=== PATIENT | female | born 1945 | race Caucasian/White ===

== ENCOUNTER 2018-02-27 08:17 | Emergency (ER) | payer OTHER, BC ==
[2018-02-27 09:56] LABS: Absolute Lymphocytes (CBC) 0.9 K/uL (0.7-4.9); Absolute Monocytes 0.8 K/uL (0.1-1.3); Absolute Neutrophil 9.1 K/uL (1.8-8.0); Basophils % 0.4 % (0-1.3); Eosinophils % 1.2 % (0-4.4); Hematocrit 41.1 % (36.0-45.0); Lymphocytes % 8.2 % (15.3-44.8); MCH 28.7 pg (27.0-35.0); MCV 83.6 fL (80-100); MPV 8.2 fL (7.6-11.3); RBC Red Blood Cell Count 4.92 M/uL (3.86-4.86)
[2018-02-27 10:01] LABS: Urine Blood TRACE (NEG); Urine Glucose NEGATIVE (NEG); Urine Protein NEGATIVE (NEG)
[2018-02-27 10:04] LABS: Urine Bacteria <20 /HPF (<20); Urine Culture Reflex Order NOT NEEDED; Urine RBC <5 /HPF (NONE SEEN)
[2018-02-27 10:05] LABS: Potassium 5.2 mEq/L (3.6-5.0)
[2018-02-27 10:11] LABS: Albumin 3.7 g/dL (3.2-5.5); Bilirubin Direct 0.1 mg/dL (0-0.2); Bilirubin Total 0.6 mg/dL (0.3-1.2); Protein, Total 7.5 g/dL (6.0-8.3)
[2018-02-27] MEDS ORDERED: NA CHLORIDE 0.9% 1,000 ML ONE (10:22)
--- NOTE | 2018-02-27 12:17 | RAD REPORT ---
EXAM DESCRIPTION: CTAbdomen Pelvis W Contrast - 02/27/2018 11:53 am CLINICAL HISTORY: Abdominal pain. COMPARISON: None. TECHNIQUE: Biphasic CT imaging of the abdomen and pelvis was performed with 100 ml non-ionic IV cont rast. All CT scans are performed using dose optimization technique as appropriate and may include automated exposure control or mA/KV adjustment according to patient size. FINDINGS: The lung bases are clear. The liver, spleen, pancreas, right adrenal gland and kidneys are within normal limits. Mild thickenin g of the left adrenal gland seen. Bilateral renal cysts are noted. No bowel obstruction, free air, free fluid or abscess. Short segment of the descending colon demonstr ates mild to moderate pericolonic inflammatory changes where several diverticula are noted compatible with mild acute diverticulitis. A more significant length of the sigmoid colon measuring about 8 cm demonstrates similar findings of pericolonic inflammatory changes in significant diverticulosis. This is compatible with additional area of acute diverticulitis. No peridiverticular abscess seen. The ap pendix is normal. No evidence of significant lymphadenopathy. Moderate lumbosacral degenerative changes. IMPRESSION: Mild acute diverticulitis is present involving the sigmoid colon and distal descending c olon without peridiverticular abscess or other complication seen.
[2018-02-27] MEDS ORDERED: CIPROFLOXACIN HCL 500 MG TAB ONE (12:30)
[2018-02-27] MEDS ORDERED: metroNIDAZOLE 500 MG TABLET ONE (12:30)
[2018-02-27] MEDS ORDERED: SOD POLYSTYREN SUL 15 GM/60 ML UCUP ONE (12:31)
--- NOTE | 2018-02-27 12:36 | EDPHYS ---
Physician Documentation [facility] Name: Lyudmila Elliott Age: 72 yrs Sex: Female : 1945 Arrival Date: 02/27/2018 Time: 08:21 Bed 8 Private MD: Lala Ortiz ED Physician Boston Pope HPI: 02/27 09:05 This 72 yrs old Female presents to ER via Ambulatory with complaints of jr8 Abdominal Pain. 09:05 The patient presents with abdominal pain in the left upper quadrant, in the left lower jr8 quadrant. Onset: The symptoms/episode began/occurred acutely, yesterday. The symptoms do not radiate. Associated signs and symptoms: none. The symptoms are described as sharp. Modifying factors: The symptoms are alleviated by nothing, the symptoms are aggravated by nothing. Severity of pain: At its worst the pain was moderate in the emergency department the pain is unchanged. The patient has not experienced similar symptoms in the past. The patient has not recently seen a physician. Patient stated that she has had abdominal on/off for the past few weeks. Last night was severe. Has never had pain that bad. Denies fevers, n/v/d . Historical: - Allergies: 09:00 PENICILLINS; dm5 09:00 Sulfa (Sulfonamide Antibiotics); dm5 - Home Meds: 09:18 levothyroxine 25 mcg tab 1 tab once daily [Active]; nadolol 40 mg oral tab 1 tab once dm5 daily [Active]; atorvastatin 10 mg oral tab 1 tab once daily [Active]; spironolactone 50 mg Oral tab 1 tab 2 times per day [Active]; alendronate 35 mg oral tab 1 tab once wkly [Active]; Caltrate 600 + D oral oral [Active]; Fish Oil 1,000 mg oral cap daily [Active]; Centrum Silver oral oral [Active]; Glucosamine oral oral [Active]; PreserVision Lutein oral oral [Active]; Josie Aspirin oral 81 mg oral 1 tab once daily [Active]; - PMHx: 09:00 Hypertension; High Cholesterol; Hypothyroidism; Diverticulitis; dm5 - Immunization history:: Adult Immunizations up to date. - Social history:: Smoking status: Patient/guardian denies using tobacco. ROS: 09:05 Eyes: Negative for injury, pain, redness, and discharge, ENT: Negative for injury, jr8 pain, and discharge, Neck: Negative for injury, pain, and swelling, Cardiovascular: Negative for chest pain, palpitations, and edema, Respiratory: Negative for shortness of breath, cough, wheezing, and pleuritic chest pain, Back: Negative for injury and pain, MS/Extremity: Negative for injury and deformity, Skin: Negative for injury, rash, and discoloration, Neuro: Negative for headache, weakness, numbness, tingling, and seizure. 09:05 Abdomen/GI: Positive for abdominal pain, Negative for nausea, vomiting, and diarrhea, abdominal distension, anorexia, dysphagia, hematemesis, black/tarry stool, rectal pain, rectal bleeding, bowel incontinence, flatulence. Exam: 09:05 Eyes: Pupils equal round and reactive to light, extra-ocular motions intact. Lids and jr8 lashes normal. Conjunctiva and sclera are non-icteric and not injected. Cornea within normal limits. Periorbital areas with no swelling, redness, or edema. ENT: Nares patent. No nasal discharge, no septal abnormalities noted. Tympanic membranes are normal and external auditory canals are clear. Oropharynx with no redness, swelling, or masses, exudates, or evidence of obstruction, uvula midline. Mucous membranes moist. Neck: Trachea midline, no thyromegaly or masses palpated, and no cervical lymphadenopathy. Supple, full range of motion without nuchal rigidity, or vertebral point tenderness. No Meningismus. Cardiovascular: Regular rate and rhythm with a normal S1 and S2. No gallops, murmurs, or rubs. Normal PMI, no JVD. No pulse deficits. Respiratory: Lungs have equal breath sounds bilaterally, clear to auscultation and percussion. No rales, rhonchi or wheezes noted. No increased work of breathing, no retractions or nasal flaring. Back: No spinal tenderness. No costovertebral tenderness. Full range of motion. Skin: Warm, dry with normal turgor. Normal color with no rashes, no lesions, and no evidence of cellulitis. MS/ Extremity: Pulses equal, no cyanosis. Neurovascular intact. Full, normal range of motion. Neuro: Awake and alert, GCS 15, oriented to person, place, time, and situation. Cranial nerves II-XII grossly intact. Motor strength 5/5 in all extremities. Sensory grossly intact. Cerebellar exam normal. Normal gait. 09:05 Abdomen/GI: Inspection: obese Bowel sounds: active, all quadrants, Palpation: soft, in all quadrants, moderate abdominal tenderness, in the mid left abdomen , mass, is not appreciated, rebound tenderness, is not appreciated, voluntary guarding, is not appreciated, involuntary guarding, is not appreciated, no appreciated organomegaly, Indicators: McBurney's point is not tender, Thayer's sign is negative, Rovsing's sign is negative, Liver: no appreciated palpable abnormalities, tenderness, is not appreciated. Vital Signs: 09:00 BP 153 / 90; Pulse 70; Resp 18; Temp 97.7; Pulse Ox 100% on R/A; Weight 104.33 kg (R); dm5 Height 5 ft. 3 in. (160.02 cm); Pain 2/10; 10:29 BP 158 / 80; Pulse 62; Resp 19; Pulse Ox 100% on R/A; ae1 12:04 BP 157 / 57; Pulse 76; Resp 22; Pulse Ox 100% on R/A; ae1 12:39 BP 157 / 90; Pulse 80; Resp 19; Pulse Ox 97% on R/A; ae1 09:00 Body Mass Index 40.74 (104.33 kg, 160.02 cm) dm5 MDM: 08:45 Patient medically screened. jr8 12:33 Data reviewed: vital signs, nurses notes, lab test result(s), radiologic studies, CT jr8 scan, and as a result, I will discharge patient. Data interpreted: Pulse oximetry: on room air is 100 %. Interpretation: normal. Counseling: I had a detailed discussion with the patient and/or guardian regarding: the historical points, exam findings, and any diagnostic results supporting the discharge/admit diagnosis, lab results, radiology results, the need for outpatient follow up, a family practitioner, to return to the emergency department if symptoms worsen or persist or if there are any questions or concerns that arise at home. ED course: Discussed with patient that she needs to be off of her potassium sparing diuretic. Will give medicine to reduce potassium but that I want her to be seen by Ms. Ortiz and have blood redraw this week. Patient understood and would follow up . 02/27 09:05 Order name: Basic Metabolic Panel; Complete Time: 10:19 jr8 02/27 09:05 Order name: CBC with Diff; Complete Time: 10:02/27 09:05 Order name: Creatinine for Radiology; Complete Time: :02/27 09:05 Order name: Hepatic Function; Complete Time: :02/27 09:05 Order name: Lipase; Complete Time: :02/27 09:05 Order name: Urine Microscopic Only; Complete Time: :02/27 09:05 Order name: IV Saline Lock; Complete Time: :02/27 09:05 Order name: Labs collected and sent; Complete Time: :02/27 09:43 Order name: Urine Dipstick--Ancillary (enter results); Complete Time: : [facility] 02/27 10:20 Order name: CT Abd/Pelvis - W/Contrast; Complete Time: 12:02/27 09:05 Order name: Urine Dipstick-Ancillary (obtain specimen); Complete Time: : Administered Medications: 10:29 Drug: NS 0.9% 1000 ml Route: IV; Rate: 1000 ml; Site: right antecubital; ae1 12:51 Follow up: IV Status: Completed infusion ae1 12:30 Drug: Kayexalate 30 grams Route: PO; ae1 12:51 Follow up: Response: Medication administered at discharge. ae1 12:30 Drug: Cipro 500 mg Route: PO; ae1 12:51 Follow up: Response: Medication administered at discharge. ae1 12:30 Drug: Flagyl 1 grams Route: PO; ae1 12:50 Follow up: Response: Medication administered at discharge. ae1 Disposition: 02/27/18 12:36 Discharged to Home. Impression: Diverticulitis of large intestine without perforation or abscess without bleeding, Hyperkalemia. - Condition is Stable. - Discharge Instructions: Diverticulitis, Hyperkalemia. - Prescriptions for Cipro 500 mg Oral Tablet - take 1 tablet by ORAL route every 12 hours for 10 days; 20 tablet. Flagyl 500 mg Oral Tablet - take 1 tablet by ORAL route every 6 hours for 10 days; 40 tablet. Zofran 4 mg Oral Tablet - take 1 tablet by ORAL route every 12 hours As needed; 20 tablet. Tramadol 50 mg Oral Tablet - take 1 tablet by ORAL route every 8 hours as needed; 12 tablet. - Medication Reconciliation Form, Thank You Letter, Antibiotic Education, Prescription Opioid Use form. - Follow up: Lala Ortiz; When: 1 - 2 days; Reason: Recheck today's complaints, Continuance of care, Re-evaluation by your physician. - Problem is new. - Symptoms have improved. Addendum: 03/01/2018 06:38 Co-signature as Attending Physician, Boston oPpe MD I agree with the assessment and w a plan of care. Signatures: Dispatcher [employer] EDSD Delicia Benavides, RN RN dm5 Pedro Herman PA PA jr8 Colin Preciado RN RN ae1 Boston Pope MD MD md Corrections: (The following items were deleted from the chart) 02/27 12:51 12:36 02/27/2018 12:36 Discharged to Home. Impression: Diverticulitis of large ae1 intestine without perforation or abscess without bleeding; Hyperkalemia. Condition is Stable. Forms are Medication Reconciliation Form, Thank You Letter, Antibiotic Education, Prescription Opioid Use. Follow up: Lala Ortiz; When: 1 - 2 days; Reason: Recheck today's complaints, Continuance of care, Re-evaluation by your physician. Problem is new. Symptoms have improved. jr8
--- NOTE | 2018-02-27 12:36 | ER ---
Nurse's Notes [facility] Name: Lyudmila Elliott Age: 72 yrs Sex: Female : 1945 Arrival Date: 02/27/2018 Time: 08:21 Bed 8 Private MD: Lala Ortiz Diagnosis: Diverticulitis of large intestine without perforation or abscess without bleeding;Hyperkalemia Presentation: 02/27 08:56 Presenting complaint: Patient states: abdominal pain for about a week. Thought it was dm5 diverticulitis flare but went to Lala Ortiz and was told it probably was not that. Pt had a KUB last week that showed some gas but no obstruction. Pt states it feels like she may be constipated. Transition of care: patient was not received from another setting of care. Onset of symptoms was February 19, 2018. Initial Sepsis Screen: Does the patient meet any 2 criteria? No. Patient's initial sepsis screen is negative. Does the patient have a suspected source of infection? No. Patient's initial sepsis screen is negative. Care prior to arrival: None. 08:56 Method Of Arrival: Ambulatory dm5 08:56 Acuity: PHOEBE 3 dm5 Triage Assessment: 09:00 General: Appears in no apparent distress. uncomfortable, Behavior is calm, cooperative. dm5 Pain: Complains of pain in anterior aspect of left lateral abdomen, left upper quadrant and left lower quadrant Pain currently is 2 out of 10 on a pain scale. at worst was 7 out of 10 on a pain scale. Pain began about a week. Neuro: Level of Consciousness is awake, alert, obeys commands, Oriented to person, place, time. Respiratory: Airway is patent. GI: Abdomen is round obese, Bowel sounds present X 4 quads. Derm: Skin is pink, warm \T\ dry. Historical: - Allergies: 09:00 PENICILLINS; dm5 09:00 Sulfa (Sulfonamide Antibiotics); dm5 - Home Meds: 09:18 levothyroxine 25 mcg tab 1 tab once daily [Active]; nadolol 40 mg oral tab 1 tab once dm5 daily [Active]; atorvastatin 10 mg oral tab 1 tab once daily [Active]; spironolactone 50 mg Oral tab 1 tab 2 times per day [Active]; alendronate 35 mg oral tab 1 tab once wkly [Active]; Caltrate 600 + D oral oral [Active]; Fish Oil 1,000 mg oral cap daily [Active]; Centrum Silver oral oral [Active]; Glucosamine oral oral [Active]; PreserVision Lutein oral oral [Active]; Josie Aspirin oral 81 mg oral 1 tab once daily [Active]; - PMHx: 09:00 Hypertension; High Cholesterol; Hypothyroidism; Diverticulitis; dm5 - Immunization history:: Adult Immunizations up to date. - Social history:: Smoking status: Patient/guardian denies using tobacco. Screenin:30 Abuse screen: Denies threats or abuse. Nutritional screening: No deficits noted. ae1 Tuberculosis screening: No symptoms or risk factors identified. Fall Risk None identified. Assessment: 10:30 General: Appears in no apparent distress. comfortable, obese. Pain: Complains of pain ae1 in abdomen. Neuro: Level of Consciousness is awake, alert, obeys commands, Oriented to person, place, time, situation. Cardiovascular: Patient's skin is warm and dry. Respiratory: Airway is patent Breath sounds are clear bilaterally. GI: Abdomen is round obese, Bowel sounds present X 4 quads. Abdomen is firm. GI: Reports nausea. : No signs and/or symptoms were reported regarding the genitourinary system. EENT: No signs and/or symptoms were reported regarding the EENT system. Derm: Skin is pink, warm \T\ dry. Musculoskeletal: No signs and/or symptoms reported regarding the musculoskeletal system. 10:44 Reassessment: Patient appears in no apparent distress at this time. Patient and/or ae1 family updated on plan of care and expected duration. Pain level reassessed. Patient states feeling better. 11:51 Reassessment: Patient is in CT, IV infiltrated while IV contrast infusing, new IV ae1 established by Himanshu Ramos APPEALS OFFICER. Vital Signs: 09:00 BP 153 / 90; Pulse 70; Resp 18; Temp 97.7; Pulse Ox 100% on R/A; Weight 104.33 kg (R); dm5 Height 5 ft. 3 in. (160.02 cm); Pain 2/10; 10:29 BP 158 / 80; Pulse 62; Resp 19; Pulse Ox 100% on R/A; ae1 12:04 BP 157 / 57; Pulse 76; Resp 22; Pulse Ox 100% on R/A; ae1 12:39 BP 157 / 90; Pulse 80; Resp 19; Pulse Ox 97% on R/A; ae1 09:00 Body Mass Index 40.74 (104.33 kg, 160.02 cm) dm5 ED Course: 08:21 Patient arrived in ED. mr 08:21 Lala Ortiz is Private Physician. mr 08:45 Pedro Herman PA is PHCP. jr8 08:45 oBston Pope MD is Attending Physician. jr8 08:58 Triage completed. dm5 09:00 Arm band placed on right wrist. Patient placed in an exam room, on a stretcher. dm5 09:31 Initial lab(s) drawn, by me, sent to lab. Urine collected: clean catch specimen, jb1 cloudy, maury colored. Inserted saline lock: 22 gauge in right antecubital area, using aseptic technique. Blood collected. 09:59 Colin Preciado, RN is Primary Nurse. ae1 10:30 Bed in low position. Call light in reach. Side rails up X 1. Adult w/ patient. Pulse ox ae1 on. NIBP on. Warm blanket given. 11:[address] via wheelchair. kw1 11:54 CT Abd/Pelvis - W/Contrast In Process Unspecified. EDMS 12:35 Lala Ortiz is Referral Physician. jr8 12:49 No provider procedures requiring assistance completed. IV discontinued, intact, ae1 bleeding controlled, No redness/swelling at site. Pressure dressing applied. Administered Medications: 10:29 Drug: NS 0.9% 1000 ml Route: IV; Rate: 1000 ml; Site: right antecubital; ae1 12:51 Follow up: IV Status: Completed infusion ae1 12:30 Drug: Kayexalate 30 grams Route: PO; ae1 12:51 Follow up: Response: Medication administered at discharge. ae1 12:30 Drug: Cipro 500 mg Route: PO; ae1 12:51 Follow up: Response: Medication administered at discharge. ae1 12:30 Drug: Flagyl 1 grams Route: PO; ae1 12:50 Follow up: Response: Medication administered at discharge. ae1 Outcome: 12:36 Discharge ordered by . jr8 12:50 Discharged to home ambulatory, with significant other. ae1 12:50 Condition: stable 12:50 Discharge instructions given to patient, Instructed on discharge instructions, follow up and referral plans. medication usage, Demonstrated understanding of instructions, Prescriptions given X 4. 12:51 Patient left the ED. ae1 Signatures: Dispatcher [employer] EDMS Richard Kulkarni jb1 Delicia Benavides, RN RN dm5 Melissa Quintana mr Pedro Herman PA PA jr8 Colin Preciado RN RN ae1 Enedelia Barth 1
== END 2018-02-27 12:51 | disposition home or self-care (01) ==
LOC: ER 08:17
DX: K57.32 Diverticulitis of large intestine without perforation or abscess without bleeding (principal); E87.5 Hyperkalemia; I10 Essential (primary) hypertension; E78.00 Pure hypercholesterolemia, unspecified; E03.9 Hypothyroidism, unspecified; Z79.82 Long term (current) use of aspirin; Z88.0 Allergy status to penicillin; Z88.2 Allergy status to sulfonamides
CPT/HCPCS: 36415; 74177; 80048; 80076; 83690; 85025; J7030; Q9967; 81003; 81015; 96360; 96361; 99284

== ENCOUNTER 2018-03-07 08:53 | Emergency (ER) | payer OTHER, BC ==
[2018-03-07] MEDS ORDERED: HYDROCODONE/APAP 5/325 MG TAB ONE (10:07)
--- NOTE | 2018-03-07 10:10 | ER ---
Nurse's Notes [facility] Name: Lyudmila Elliott Age: 72 yrs Sex: Female : 1945 Arrival Date: 03/07/2018 Time: 08:54 Bed 19 Private MD: Diagnosis: Gout, unspecified-left great toe;Abrasion of left forearm Presentation: 03/07 09:00 Acuity: PHOEBE 4 rb1 09:00 Presenting complaint: Patient states: She fell last night around 7:00 and got a skin rb1 tear on her left forearm. She stated, "The reason I fell was because my left foot is hurting and when I stepped down, it shot a pain through my foot and I fell." Pt. denies hitting her head. Transition of care: patient was not received from another setting of care. Onset of symptoms was March 06, 2018 at 19:00. Initial Sepsis Screen: Does the patient meet any 2 criteria? No. Patient's initial sepsis screen is negative. Does the patient have a suspected source of infection? No. Patient's initial sepsis screen is negative. Care prior to arrival: bandage placed on the left forearm. 09:00 Method Of Arrival: Ambulatory rb1 Triage Assessment: 09:00 General: Appears in no apparent distress. comfortable, obese, Behavior is calm, rb1 cooperative. Pain: Complains of pain in left first toe Pain currently is 3 out of 10 on a pain scale. Neuro: Level of Consciousness is awake, alert, obeys commands, Oriented to person, place, time, situation. Cardiovascular: Capillary refill < 3 seconds is brisk in bilateral toes. Respiratory: Airway is patent Respiratory effort is even, unlabored, Respiratory pattern is regular, symmetrical. GI: Reports diarrhea, currently being treated for diverticulitis. : No signs and/or symptoms were reported regarding the genitourinary system. Derm: Bruising that is dark purple, on left forearm and left index finger. Musculoskeletal: Swelling present in right leg and left leg. Historical: - Allergies: 09:00 PENICILLINS; rb1 09:00 Sulfa (Sulfonamide Antibiotics); rb1 - Home Meds: 09:00 alendronate 25 Oral tab 1 tab once wkly [Active]; atorvastatin 10 mg Oral tab 1 tab rb1 once daily [Active]; Josie Aspirin 81 mg Oral 1 tab three times a day [Active]; Caltrate 600 + D Oral daily [Active]; Centrum Silver Oral daily [Active]; Glucosamine Oral daily [Active]; Fish Oil 1,000 mg Oral cap daily [Active]; levothyroxine 25 mcg tab 1 tab once daily [Active]; nadolol 40 mg Oral tab 1 tab once daily [Active]; PreserVision Lutein Oral [Active]; spironolactone 50 mg Oral tab 1 tab 2 times per day [Active]; - PMHx: 09:00 Diverticulitis; High Cholesterol; Hypertension; Hypothyroidism; Gout; rb1 - PSHx: 09:00 Hysterectomy; Hernia repair; Cholecystectomy; rb1 - Immunization history:: Adult Immunizations up to date, Last tetanus immunization: up to date. - Social history:: Smoking status: Patient/guardian denies using tobacco. Screenin:05 Abuse screen: Denies threats or abuse. Nutritional screening: No deficits noted. rb1 Tuberculosis screening: No symptoms or risk factors identified. Fall Risk Fall in past 12 months (25 points). Secondary diagnosis (15 points) impaired mobility, No IV (0 pts). Ambulatory Aid- None/Bed Rest/Nurse Assist (0 pts). Gait- Impaired (20 pts.). Mental Status- Oriented to own ability (0 pts). Total Penny Fall Scale indicates High Risk Score (45 or more points). Fall prevention measures have been instituted. Side Rails Up X 2 Placed Close to Nursing Station 1:1 Attendant Assigned Frequent Obs/Assessments Occuring Family Present and informed to notify staff if the need to leave the bedside As available patient and family educated on Fall Prevention Program and Strategies. Assessment: 09:00 General: See triage assessment. rb1 10:00 Reassessment: Patient appears in no apparent distress at this time. No changes from rb1 previously documented assessment. 10:40 Reassessment: Patient appears in no apparent distress at this time. Patient and/or rb1 family updated on plan of care and expected duration. Pain level reassessed. Patient is alert, oriented x 3, equal unlabored respirations, skin warm/dry/pink. Patient states symptoms have improved. 11:00 Reassessment: Patient appears in no apparent distress at this time. No changes from rb1 previously documented assessment. Vital Signs: 09:00 BP 163 / 85; Pulse 65; Resp 19; Pulse Ox 98% on R/A; Weight 104.33 kg (R); Height 5 ft. rb1 3 in. (160.02 cm); Pain 3/10; 10:00 BP 158 / 79; Pulse 62; Resp 17; Pulse Ox 99% on R/A; rb1 11:05 BP 155 / 74; Pulse 55; Resp 16; Pulse Ox 97% on R/A; aj 09:00 Body Mass Index 40.74 (104.33 kg, 160.02 cm) rb1 ED Course: 08:54 Patient arrived in ED. sb2 08:59 Padmini Veloz, RN is Primary Nurse. rb1 08:59 Trav Worley NP is PHCP. pm1 08:59 Ulysses Nova MD is Attending Physician. pm1 09:00 Arm band placed on right wrist. rb1 09:00 Patient has correct armband on for positive identification. Bed in low position. Call rb1 light in reach. Side rails up X 1. Pulse ox on. NIBP on. 09:29 Triage completed. rb1 11:05 Patient did not have IV access during this emergency room visit. aj 11:05 Dressings: Kerlix X 1; left arm non-adherent dressing x 1 left arm. Wound care: located aa5 on left arm was cleaned with soap and water. 11:05 No provider procedures requiring assistance completed. rb1 Administered Medications: 10:08 Drug: HYDROcodone-acetaminophen 5 mg-325 mg 1 tabs Route: PO; rb1 11:05 Follow up: Response: No adverse reaction aa5 11:05 Drug: Triple Antibiotic Ointment 1 application Route: Topical; Site: wound; aa5 Outcome: 10:10 Discharge ordered by MD. pm1 11:05 Discharged to home ambulatory, with family. aj 11:05 Condition: good 11:05 Discharge instructions given to patient, family, Instructed on discharge instructions, follow up and referral plans. Demonstrated understanding of instructions, follow-up care. 11:06 Patient left the ED. aj Signatures: Aubree Aleman RN RN aj Calderon, Audri, RN RN aa5 Padmini Veloz, RN RN rb1 Trav Worley NP [employer] pm1 Ani Tian sb2
--- NOTE | 2018-03-07 10:10 | EDPHYS ---
Physician Documentation [facility] Name: Lyudmila Elliott Age: 72 yrs Sex: Female : 1945 Arrival Date: 03/07/2018 Time: 08:54 Bed 19 Private MD: ED Physician Ulysses Nova HPI: 03/07 11:00 This 72 yrs old Female presents to ER via Ambulatory with complaints of Fall pm1 Injury, Foot Pain, Arm Injury. 11:00 Details of fall: The patient fell from an upright position, while walking. Onset: The pm1 symptoms/episode began/occurred last night. Associated injuries: The patient sustained abrasion to left forearm. The patient has been recently seen at the [facility] Emergency Department, for unrelated complaints, diagnosed with diverticulitis. Improvement in symptoms and no abdominal pain with antibiotics . tetanus up to date. Patient with a left toe gout flare up for the past 2-3 days. patient stepped down to lower floor of the garage and experienced pain to left toe from gout. Patient fell forward and scrapped her left forearm against the carpet. No head injury, headache or neck pain. Patient taking indomethacin for gout. Historical: - Allergies: 09:00 PENICILLINS; rb1 09:00 Sulfa (Sulfonamide Antibiotics); rb1 - Home Meds: 09:00 alendronate 25 Oral tab 1 tab once wkly [Active]; atorvastatin 10 mg Oral tab 1 tab rb1 once daily [Active]; Josie Aspirin 81 mg Oral 1 tab three times a day [Active]; Caltrate 600 + D Oral daily [Active]; Centrum Silver Oral daily [Active]; Glucosamine Oral daily [Active]; Fish Oil 1,000 mg Oral cap daily [Active]; levothyroxine 25 mcg tab 1 tab once daily [Active]; nadolol 40 mg Oral tab 1 tab once daily [Active]; PreserVision Lutein Oral [Active]; spironolactone 50 mg Oral tab 1 tab 2 times per day [Active]; - PMHx: 09:00 Diverticulitis; High Cholesterol; Hypertension; Hypothyroidism; Gout; rb1 - PSHx: 09:00 Hysterectomy; Hernia repair; Cholecystectomy; rb1 - Immunization history:: Adult Immunizations up to date, Last tetanus immunization: up to date. - Social history:: Smoking status: Patient/guardian denies using tobacco. ROS: 11:00 Constitutional: Negative for fever, chills, and weight loss, Eyes: Negative for injury, pm1 pain, redness, and discharge, ENT: Negative for injury, pain, and discharge, Neck: Negative for injury, pain, and swelling, Cardiovascular: Negative for chest pain, palpitations, and edema, Respiratory: Negative for shortness of breath, cough, wheezing, and pleuritic chest pain, Abdomen/GI: Negative for abdominal pain, nausea, vomiting, diarrhea, and constipation, Back: Negative for injury and pain, : Negative for injury, bleeding, discharge, and swelling. 11:00 Neuro: Negative for headache, weakness, numbness, tingling, and seizure. 11:00 MS/extremity: Positive for pain, of the left first toe. 11:00 Skin: Positive for abrasion(s), of the left arm. Exam: 11:00 Constitutional: This is a well developed, well nourished patient who is awake, alert, pm1 and in no acute distress. Head/Face: Normocephalic, atraumatic. Eyes: Pupils equal round and reactive to light, extra-ocular motions intact. Lids and lashes normal. Conjunctiva and sclera are non-icteric and not injected. Cornea within normal limits. Periorbital areas with no swelling, redness, or edema. ENT: Nares patent. No nasal discharge, no septal abnormalities noted. Tympanic membranes are normal and external auditory canals are clear. Oropharynx with no redness, swelling, or masses, exudates, or evidence of obstruction, uvula midline. Mucous membranes moist. Neck: Trachea midline, no thyromegaly or masses palpated, and no cervical lymphadenopathy. Supple, full range of motion without nuchal rigidity, or vertebral point tenderness. No Meningismus. Chest/axilla: Normal chest wall appearance and motion. Nontender with no deformity. No lesions are appreciated. Cardiovascular: Regular rate and rhythm with a normal S1 and S2. No gallops, murmurs, or rubs. Normal PMI, no JVD. No pulse deficits. Respiratory: Lungs have equal breath sounds bilaterally, clear to auscultation and percussion. No rales, rhonchi or wheezes noted. No increased work of breathing, no retractions or nasal flaring. Abdomen/GI: Soft, non-tender, with normal bowel sounds. No distension or tympany. No guarding or rebound. No evidence of tenderness throughout. Back: No spinal tenderness. No costovertebral tenderness. Full range of motion. 11:00 Musculoskeletal/extremity: Extremities: grossly normal except: noted in the PIP of first left toe: swelling, tenderness. 11:00 Skin: injury, abrasion(s), small abrasion noted, of the dorsal aspect of left forearm. Vital Signs: 09:00 BP 163 / 85; Pulse 65; Resp 19; Pulse Ox 98% on R/A; Weight 104.33 kg (R); Height 5 ft. rb1 3 in. (160.02 cm); Pain 3/10; 10:00 BP 158 / 79; Pulse 62; Resp 17; Pulse Ox 99% on R/A; rb1 11:05 BP 155 / 74; Pulse 55; Resp 16; Pulse Ox 97% on R/A; aj 09:00 Body Mass Index 40.74 (104.33 kg, 160.02 cm) rb1 MDM: 09:05 Patient medically screened. pm1 10:06 Data reviewed: vital signs. Data interpreted: Pulse oximetry: on room air is 98 %. pm1 Interpretation: normal. Counseling: I had a detailed discussion with the patient and/or guardian regarding: the historical points, exam findings, and any diagnostic results supporting the discharge/admit diagnosis, the need for outpatient follow up, to return to the emergency department if symptoms worsen or persist or if there are any questions or concerns that arise at home. 03/07 10:16 Order name: Wound Care; Complete Time: 11:05 pm1 03/07 10:16 Order name: Wound dressing; Complete Time: 11:05 pm1 Administered Medications: 10:08 Drug: HYDROcodone-acetaminophen 5 mg-325 mg 1 tabs Route: PO; rb1 11:05 Follow up: Response: No adverse reaction aa5 11:05 Drug: Triple Antibiotic Ointment 1 application Route: Topical; Site: wound; aa5 Disposition: 03/08 07:16 Co-signature as Attending Physician, Ulysses Nova MD I agree with the assessment and jay plan of care. Disposition: 03/07/18 10:10 Discharged to Home. Impression: Gout, unspecified - left great toe, Abrasion of left forearm. - Condition is Stable. - Discharge Instructions: Abrasion, Gout, Low-Purine Diet. - Medication Reconciliation Form, Thank You Letter, Prescription Opioid Use form. - Follow up: Emergency Department; When: As needed; Reason: Worsening of condition. Follow up: Private Physician; When: 2 - 3 days; Reason: Recheck today's complaints, Continuance of care, Re-evaluation by your physician. - Problem is new. - Symptoms have improved. Signatures: Aubree Aleman RN Ulysses Kolb MD MD cha Calderon, Audri RN RN aa5 Padmini Veloz, RN RN rb1 Trav Worley, [employer] TENDER COORDINATOR pm1 Corrections: (The following items were deleted from the chart) 03/07 11:06 10:10 03/07/2018 10:10 Discharged to Home. Impression: Gout, unspecified - left great aj toe; Abrasion of left forearm. Condition is Stable. Forms are Medication Reconciliation Form, Thank You Letter, Antibiotic Education, Prescription Opioid Use. Follow up: Emergency Department; When: As needed; Reason: Worsening of condition. Follow up: Private Physician; When: 2 - 3 days; Reason: Recheck today's complaints, Continuance of care, Re-evaluation by your physician. Problem is new. Symptoms have improved. pm1
== END 2018-03-07 11:06 | disposition home or self-care (01) ==
LOC: ER 08:53
DX: S50.812A Abrasion of left forearm, initial encounter (principal); W18.30XA Fall on same level, unspecified, initial encounter; Y93.9 Activity, unspecified; Y92.9 Unspecified place or not applicable; M10.9 Gout, unspecified; Z88.0 Allergy status to penicillin; Z88.2 Allergy status to sulfonamides; E03.9 Hypothyroidism, unspecified; I10 Essential (primary) hypertension; E78.00 Pure hypercholesterolemia, unspecified
CPT/HCPCS: 99283

== ENCOUNTER 2018-03-09 12:17 | Observation (INO) | payer OTHER, BC ==
[2018-03-09] MEDS ORDERED: HYDROCODONE/APAP 7.5/325 MG TAB ONE (13:05)
--- NOTE | 2018-03-09 14:42 | RAD REPORT ---
EXAM DESCRIPTION: RAD - Pelvis - 03/09/2018 2:15 pm CLINICAL HISTORY: Fall, pelvic and hip pain COMPARISON: None. TECHNIQUE: AP imaging of the pelvis was obtained. FINDINGS: No fracture or dislocation findings. No AVN or focal femoral head abnormality. Lower lumba r, SI joint and hip joint degenerative changes are present minimal in degree. No pathologic bone proc ess. No suspicious soft tissue finding. IMPRESSION: Negative pelvis for acute or suspicious finding.
--- NOTE | 2018-03-09 14:46 | RAD REPORT ---
EXAM DESCRIPTION: RAD - Knee Right 3 View - 03/09/2018 2:15 pm CLINICAL HISTORY: Fall, knee pain COMPARISON: None. FINDINGS: No fracture, dislocation or periosteal reaction.No joint effusion seen. No joint space carine rowing. Mild degenerative changes are present along the articular margins of all 3 compartments. Mini mal spurring is present at the quadriceps attachment to the patella. Clinical concerns for internal derangement or occult bony injury could be further assessed with MR im aging. IMPRESSION: Mild degenerative change with no acute bone or joint finding.
--- NOTE | 2018-03-09 14:48 | RAD REPORT ---
EXAM DESCRIPTION: RAD - Femur Left - 03/09/2018 2:15 pm CLINICAL HISTORY: Fall, leg pain COMPARISON: None. FINDINGS: No fracture is identified. No dislocation of the femoral head. No AVN or focal femoral he ad abnormality. Calcifications are present and tendon insertion sites to the greater trochanter. Lowe r lumbar and SI joint degenerative changes are present. Marginal spurring degenerative changes are pr esent at all compartments of the knee. No pathologic bone process. No air or foreign body in the soft tissues. IMPRESSION: Degenerative changes are present but no fracture or acute bone finding.
--- NOTE | 2018-03-09 14:53 | RAD REPORT ---
EXAM DESCRIPTION: RAD - Tib Fib Left - 03/09/2018 2:15 pm CLINICAL HISTORY: Persistent pain following fall 3 days earlier COMPARISON: None. FINDINGS: No fracture is identified. There is no dislocation or periosteal reaction noted. No acute or suspicious bony finding. Large plantar spur is present. No foreign body or other soft tissue abnormality. IMPRESSION: Negative left tibia & fibula examination for acute or suspicious finding. Large plantar spur.
[2018-03-09] MEDS ORDERED: FENTANYL CITR 100 MCG/2 ML ONE (16:21)
--- NOTE | 2018-03-09 17:02 | RAD REPORT ---
EXAM DESCRIPTION: CT - Pelvis Wo Cont - 03/09/2018 4:32 pm CLINICAL HISTORY: Fall, pelvic pain, and exam findings out of proportion to imaging findings COMPARISON: Pelvis and hip films same date TECHNIQUE: Axial 2 millimeter thick images of the pelvis were obtained. Sagittal and coronal reforma tted images were generated and reviewed. FINDINGS: No fracture of the bony pelvis or sacral ala. Lower lumbar prominent facet degenerative ch diana present with no fracture. No fracture or dislocation of either proximal femur. No skeletal muscl e hematoma or mass. No suspicious soft tissue finding. No air or foreign body identified. Vascular ca lcifications are seen. IMPRESSION: No fracture or suspicious finding noted.
--- NOTE | 2018-03-09 17:06 | RAD REPORT ---
EXAM DESCRIPTION: CT - Low Extremity Wo Cont - 03/09/2018 4:37 pm CLINICAL HISTORY: Fall 3 days earlier, persistent pelvic and hip pain, pain out of proportion to exa m and imaging findings COMPARISON: CT pelvis same date, left femur films same date TECHNIQUE: Axial 2 millimeter thick images of the left femur were obtained. Imaging spans the entire length of the femur including the acetabulum and proximal most tibia fibula. FINDINGS: No femur fracture identified. There is no dislocation. No AVN or focal femoral head abnorm ality. No acute or destructive bone process seen. Calcifications are present in tendon insertion to t he greater trochanter. This is a chronic finding. Degenerative changes are present at the knee joint. A joint effusion is present but no finding to indicate it is related to fracture. No skeletal muscle mass or hematoma. Contusion or edema changes are seen in the fatty tissues anterior to the knee join t and along the anteromedial margin of the proximal tibia. IMPRESSION: No fracture or acute finding of the left femur. Tendon calcifications are present at ins ertion sites to the greater trochanter. Degenerative change and joint effusion at the knee. No finding to indicate fracture. Contusion and edema changes in the soft tissues anterior to the knee joint, patella tendon and gurwinder medial margin of the proximal tibia.
[2018-03-09] MEDS ORDERED: NA CHLORIDE 0.9% 1,000 ML ONE (18:00)
[2018-03-09 18:06] LABS: Absolute Lymphocytes (CBC) 0.5 K/uL (0.7-4.9); Absolute Monocytes 1.5 K/uL (0.1-1.3); Absolute Neutrophil 15.1 K/uL (1.8-8.0); Basophils % 0.9 % (0-1.3); Eosinophils % 0.1 % (0-4.4); Hematocrit 42.3 % (36.0-45.0); Lymphocytes % 3.1 % (15.3-44.8); MCH 27.8 pg (27.0-35.0); MCV 84.3 fL (80-100); MPV 8.4 fL (7.6-11.3); Monocytes % 8.9 % (3.3-12.3); RBC Red Blood Cell Count 5.02 M/uL (3.86-4.86)
[2018-03-09 18:10] LABS: Protime INR 1.36
[2018-03-09 18:22] LABS: Potassium 4.3 mEq/L (3.6-5.0)
[2018-03-09 18:35] LABS: CKMB Creatine Kinase MB 2.4 ng/ml (0.3-4.0)
[2018-03-09 18:49] LABS: Blood Morphology Comment NOT SEEN (NOT SEEN); Magnesium 1.6 mg/dL (1.8-2.5); Platelet Estimate ADEQ; Urine White Blood Cell Casts OK
--- NOTE | 2018-03-09 19:15 | EDPHYS ---
Physician Documentation [facility] Name: Lyudmila Elliott Age: 72 yrs Sex: Female : 1945 Arrival Date: 03/09/2018 Time: 12:25 Bed 15 Private MD: ED Physician Ulysses Nova HPI: 03/09 12:45 This 72 yrs old Female presents to ER via EMS with complaints of fall. cp 12:45 Details of fall: The patient fell from an upright position, while walking, and struck a cp carpeted surface. Onset: The symptoms/episode began/occurred 3 day(s) ago. 12:45 Associated injuries: The patient sustained left leg. cp 12:45 Severity of symptoms: in the emergency department the symptoms unable to bear weight. cp Historical: - Allergies: 12:30 PENICILLINS; em 12:30 Sulfa (Sulfonamide Antibiotics); em - Home Meds: 12:30 alendronate 25 Oral tab 1 tab once wkly [Active]; atorvastatin 10 mg Oral tab 1 tab em once daily [Active]; Josie Aspirin 81 mg Oral 1 tab three times a day [Active]; Caltrate 600 + D Oral daily [Active]; Centrum Silver Oral daily [Active]; Fish Oil 1,000 mg Oral cap daily [Active]; Glucosamine Oral daily [Active]; levothyroxine 25 mcg tab 1 tab once daily [Active]; nadolol 40 mg Oral tab 1 tab once daily [Active]; PreserVision Lutein Oral [Active]; spironolactone 50 mg Oral tab 1 tab 2 times per day [Active]; - PMHx: 12:30 Diverticulitis; Gout; High Cholesterol; Hypertension; Hypothyroidism; em - Immunization history:: Adult Immunizations up to date. - Social history:: Smoking status: Patient/guardian denies using tobacco. ROS: 13:00 Constitutional: Negative for body aches, chills, fever, poor PO intake. cp 13:00 Eyes: Negative for injury, pain, redness, and discharge. cp 13:00 ENT: Negative for drainage from ear(s), ear pain, sore throat, difficulty swallowing, difficulty handling secretions. 13:00 Cardiovascular: Negative for chest pain, edema, palpitations. 13:00 Respiratory: Negative for cough, shortness of breath, wheezing. 13:00 Abdomen/GI: Negative for abdominal pain, nausea, vomiting, and diarrhea, black/tarry stool, rectal bleeding. 13:00 Back: Negative for pain at rest, pain with movement, radiated pain. 13:00 MS/extremity: Positive for pain, swelling, tenderness, of the left leg. 13:00 Skin: Negative for cellulitis, rash. 13:00 Neuro: Negative for altered mental status, dizziness, headache, seizure activity, syncope, near syncope, weakness. 13:00 All other systems are negative. Exam: 13:05 Constitutional: The patient appears in no acute distress, alert, awake, cp non-diaphoretic, non-toxic, well developed, well nourished, obese, uncomfortable. 13:05 Head/Face: Normocephalic, atraumatic. cp 13:05 Eyes: Periorbital structures: appear normal, Pupils: equal, round, and reactive to light and accomodation, Extraocular movements: intact throughout, Conjunctiva: normal, no exudate, no injection, Sclera: no appreciated abnormality, Lids and lashes: appear normal, bilaterally. 13:05 ENT: External ear(s): are unremarkable, Ear canal(s): are normal, clear, TM's: bulging, is not appreciated, bilaterally, dullness, bilaterally, erythema, is not appreciated, bilaterally, Nose: is normal, Mouth: Lips: moist, Oral mucosa: pink and intact, moist, Posterior pharynx: is normal, airway is patent, no erythema, no exudate, Voice: is normal. 13:05 Neck: C-spine: vertebral tenderness, is not appreciated, crepitus, is not appreciated, ROM/movement: is normal, is supple, without pain, no range of motions limitations, no meningismus, no nuchal rigidity. 13:05 Chest/axilla: Inspection: normal, Palpation: is normal, no crepitus, no tenderness. 13:05 Cardiovascular: Rate: normal, Rhythm: regular. 13:05 Respiratory: the patient does not display signs of respiratory distress, Respirations: normal, no use of accessory muscles, no retractions, no splinting, no tachypnea, labored breathing, is not present, Breath sounds: are clear throughout, no decreased breath sounds, no stridor, no wheezing. 13:05 Abdomen/GI: Inspection: obese Bowel sounds: active, all quadrants, Palpation: abdomen is soft and non-tender, in all quadrants, rebound tenderness, is not appreciated, voluntary guarding, is not appreciated, involuntary guarding, is not appreciated. 13:05 Back: pain, is absent, ROM is normal, vertebral tenderness, is not appreciated. 13:05 Musculoskeletal/extremity: Extremities: grossly normal except: noted in the left knee: decreased ROM, ecchymosis, pain, swelling, tenderness, Pulses: noted to be 2+ in the right radial artery, right dorsalis pedis artery, left radial artery and left dorsalis pedis artery, Sensation intact. 13:05 Skin: cellulitis, is not appreciated, injury, abrasion(s), moderate sized abrasion noted, of the left elbow, no rash present. 13:05 Neuro: Orientation: to person, place \T\ time. Mentation: lucid, able to follow commands, Sensation: no obvious gross deficits. 18:45 ECG was reviewed by the Attending Physician. cp Vital Signs: 12:31 BP 137 / 57; Pulse 81; Resp 18; Temp 98.0(O); Pulse Ox 99% on R/A; Weight 104.33 kg; em Height 5 ft. 3 in. (160.02 cm); Pain 8/10; 14:41 BP 141 / 58; Pulse 74; Resp 16; Pulse Ox 95% on R/A; Pain 2/10; em 15:40 BP 134 / 56; Pulse 74; Resp 18; Pulse Ox 98% on R/A; em 19:36 BP 150 / 73; Pulse 72; Resp 16; Pulse Ox 100% on R/A; Pain 0/10; ao 12:31 Body Mass Index 40.74 (104.33 kg, 160.02 cm) em MDM: 12:27 Patient medically screened. cp 13:00 Differential diagnosis: closed head injury, contusion, fracture, multiple trauma. cp 19:11 Data reviewed: vital signs, nurses notes, lab test result(s), EKG, radiologic studies, cp CT scan, plain films. Physician consultation: Trell Gaming MD was called at 19:12, was contacted at 19:12, regarding admission, to the medical/surgical unit. patient's condition. 03/09 17:37 Order name: CBC with Diff; Complete Time: 19:09 cp 03/09 18:45 Interpretation: Normal except: WBC 17.4; RBC 5.02; MNA 1.5; LYMA 0.5; NEUT A 15.1; LYM% cp 3.1; NIGEL% 87.0. 03/09 17:37 Order name: BMP; Complete Time: 18:44 cp 03/09 18:44 Interpretation: Normal except: NA 134; GLUC 155; CA 8.3; CRE 1.07; GFR 51. cp 03/09 17:37 Order name: PT-INR; Complete Time: 18:44 cp 03/09 18:47 Interpretation: Abnormal: PT 16.1. cp / 17:37 Order name: Ptt, Activated; Complete Time: 18:44 cp 03/09 17:45 Order name: Ckmb; Complete Time: 19:09 cp 03/09 17:45 Order name: Troponin I; Complete Time: 18:44 cp 03/09 17:45 Order name: CK; Complete Time: 19:09 cp 03/09 17:45 Order name: Magnesium; Complete Time: 19:09 cp 03/09 18:08 Order name: CBC Smear Scan; Complete Time: 19:09 EDIL 03/09 18:48 Order name: Urine Microscopic Only 03/09 19:14 Order name: Urine Dipstick--Ancillary (enter results) 2 03/09 19:28 Order name: Basic Metabolic Panel EDIL 03/09 19:28 Order name: Basic Metabolic Panel EDIL 03/09 19:28 Order name: CBC with Automated Diff EDIL 03/09 12:37 Order name: XRAY Pelvis; Complete Time: 14:57 cp 03/09 12:37 Order name: XRAY Knee RIGHT 3 view; Complete Time: 14:57 cp 03/09 12:37 Order name: XRAY Femur LEFT; Complete Time: 14:57 cp 03/09 12:37 Order name: XRAY Tib Fib LEFT; Complete Time: 14:57 cp 03/09 16:08 Order name: CT Pelvis wo Cont; Complete Time: 17:18 cp 03/09 16:08 Order name: IV; Complete Time: 17:08 cp 03/09 16:14 Order name: Low Extremity Wo Cont; Complete Time: 17:18 EDMS 03/09 17:45 Order name: EKG; Complete Time: 17:46 cp 03/09 17:45 Order name: EKG - Nurse/Tech; Complete Time: 18:42 cp 03/09 19:28 Order name: Physical Therapy Consult [facility] 03/09 19:28 Order name: Heart Healthy [facility] 03/09 19:28 Order name: CBC with Automated Diff [facility] 03/09 18:48 Order name: Urine Dipstick-Ancillary (obtain specimen); Complete Time: 19:02 cp EC:45 Rate is 77 beats/min. Rhythm is regular. NV interval is normal. QRS interval is normal. cp QT interval is normal. T waves are Inverted in lead III. No ST changes noted. Interpreted by me. Administered Medications: 13:06 Drug: Hydrocodone-Acetaminophen (7.5 mg-325 mg) 1 tabs Route: PO; em 16:12 Follow up: Response: No adverse reaction; Pain is decreased em 17:08 Drug: fentaNYL (PF) 25 mcg Route: IVP; Site: right antecubital; hj 17:38 Follow up: Response: No adverse reaction em 18:37 Drug: NS 0.9% 1000 ml Route: IV; Rate: 100 ml/hr; Site: right antecubital; em 20:09 Follow up: IV Status: Infusion continued upon admission ao 19:38 Drug: Rocephin - (cefTRIAXone) 1 grams Route: IVPB; Infused Over: 30 mins; Site: right ao antecubital; 20:09 Follow up: IV Status: Completed infusion ao Disposition: 03/09/18 19:14 Hospitalization ordered by Trell Gaming for Observation. Preliminary diagnosis are Other slipping, tripping and stumbling and falls, Pain in left leg, Pain in left knee, Urinary tract infection, site not specified. - Bed requested for Telemetry/MedSurg (observation). - Status is Observation. ao - Condition is Stable. - Problem is new. - Symptoms have improved. UTI on Admission? Yes Addendum: 03/11/2018 09:06 Co-signature as Attending Physician, Ulysses Nova MD I agree with the assessment and c mallory plan of care. Signatures: Dispatcher [employer] [facility] Ulysses Nova MD MD cha Munoz, Edgar, SPRAYER LEATHER SPRAYER LEATHER em Rylan Matthews RN RN Ulysses Rubi PA PA cp Garcia, Cindy, RN RN Sena, Scooter, RN RN ao Corrections: (The following items were deleted from the chart) 03/09 18:45 18:44 Normal except: WBC 17.4; RBC 5.02. cp cp 19:35 19:14 Hospitalization Ordered by Trell Gaming MD for Observation. Preliminary diagnosis cg is Other slipping, tripping and stumbling and falls; Pain in left leg; Pain in left knee; Urinary tract infection, site not specified. Bed requested for Telemetry/MedSurg (observation). Status is Observation. Condition is Stable. Problem is new. Symptoms have improved. UTI on Admission? Yes. cp 20:47 19:35 03/09/2018 19:14 Hospitalization Ordered by Trell Gaming MD for Observation. ao Preliminary diagnosis is Other slipping, tripping and stumbling and falls; Pain in left leg; Pain in left knee; Urinary tract infection, site not specified. Bed requested for Telemetry/MedSurg (observation). Status is Observation. Condition is Stable. Problem is new. Symptoms have improved. UTI on Admission? Yes. cg
--- NOTE | 2018-03-09 19:15 | ER ---
Nurse's Notes [facility] Name: Lyudmila Elliott Age: 72 yrs Sex: Female : 1945 Arrival Date: 03/09/2018 Time: 12:25 Bed 15 Private MD: Diagnosis: Other slipping, tripping and stumbling and falls;Pain in left leg;Pain in left knee;Urinary tract infection, site not specified Presentation: 03/09 12:25 Presenting complaint: EMS states: called out for left knee pain that started after a em fall that occurred on Sunday, denies LOC or hitting head, has been ambulating on leg since fall but this morning was unable to stand on leg, was here on c/o gout in left foot. Transition of care: patient was not received from another setting of care. Onset of symptoms was March 06, 2018. Initial Sepsis Screen: Does the patient meet any 2 criteria? No. Patient's initial sepsis screen is negative. Does the patient have a suspected source of infection? No. Patient's initial sepsis screen is negative. Care prior to arrival: None. 12:25 Method Of Arrival: EMS: [facility] em 12:53 Acuity: PHOEBE 4 iw Historical: - Allergies: 12:30 PENICILLINS; em 12:30 Sulfa (Sulfonamide Antibiotics); em - Home Meds: 12:30 alendronate 25 Oral tab 1 tab once wkly [Active]; atorvastatin 10 mg Oral tab 1 tab em once daily [Active]; Josie Aspirin 81 mg Oral 1 tab three times a day [Active]; Caltrate 600 + D Oral daily [Active]; Centrum Silver Oral daily [Active]; Fish Oil 1,000 mg Oral cap daily [Active]; Glucosamine Oral daily [Active]; levothyroxine 25 mcg tab 1 tab once daily [Active]; nadolol 40 mg Oral tab 1 tab once daily [Active]; PreserVision Lutein Oral [Active]; spironolactone 50 mg Oral tab 1 tab 2 times per day [Active]; - PMHx: 12:30 Diverticulitis; Gout; High Cholesterol; Hypertension; Hypothyroidism; em - Immunization history:: Adult Immunizations up to date. - Social history:: Smoking status: Patient/guardian denies using tobacco. Screenin:32 Abuse screen: Denies threats or abuse. Nutritional screening: No deficits noted. em Tuberculosis screening: No symptoms or risk factors identified. Fall Risk None identified. Assessment: 12:35 General: Appears in no apparent distress. uncomfortable, Behavior is calm, cooperative. em Pain: Complains of pain in right knee and anterior aspect of right ankle. Neuro: Level of Consciousness is awake, alert, obeys commands, Oriented to person, place, time, situation. Cardiovascular: Capillary refill < 3 seconds Patient's skin is warm and dry. Respiratory: Airway is patent Respiratory effort is even, unlabored, Respiratory pattern is regular, symmetrical. GI: Abdomen is round obese. : No signs and/or symptoms were reported regarding the genitourinary system. EENT: No signs and/or symptoms were reported regarding the EENT system. Derm: Skin is intact, Skin is pink, warm \T\ dry. Musculoskeletal: Range of motion: limited in left knee and left ankle. Injury Description: fall injury. 12:45 Reassessment: Patient appears in no apparent distress at this time. I agree with above iw assessment by Duy Joy LVN. 15:00 Reassessment: Patient appears in no apparent distress at this time. Patient and/or em family updated on plan of care and expected duration. Pain level reassessed. Patient is alert, oriented x 3, equal unlabored respirations, skin warm/dry/pink. Patient states feeling better. Patient states symptoms have improved. 16:00 Reassessment: Patient appears in no apparent distress at this time. Patient and/or em family updated on plan of care and expected duration. Pain level reassessed. Patient is alert, oriented x 3, equal unlabored respirations, skin warm/dry/pink. pt c/o pain in left knee after attempting to ambulate, TIMOTHY Arora notified, new orders received. 16:37 Reassessment: attempted to ambulate pt, pt unable to get out of wheelchair, TIMOTHY Arora em notified. 17:09 Reassessment: Patient appears in no apparent distress at this time. Patient and/or em family updated on plan of care and expected duration. Pain level reassessed. Patient is alert, oriented x 3, equal unlabored respirations, skin warm/dry/pink. 18:05 Reassessment: Patient appears in no apparent distress at this time. Patient and/or em family updated on plan of care and expected duration. Pain level reassessed. Patient is alert, oriented x 3, equal unlabored respirations, skin warm/dry/pink. 19:33 General: Appears in no apparent distress. comfortable, Behavior is calm, cooperative, ao appropriate for age. Pain: Complains of pain in left ankle. Neuro: Level of Consciousness is awake, alert, obeys commands, Oriented to person, place, time, situation, Moves all extremities. Speech is normal, Facial symmetry appears normal, Intact. Cardiovascular: Capillary refill < 3 seconds Patient's skin is warm and dry. Respiratory: Airway is patent Respiratory effort is even, unlabored, Respiratory pattern is regular, symmetrical. GI: Abdomen is round obese. : No signs and/or symptoms were reported regarding the genitourinary system. EENT: No signs and/or symptoms were reported regarding the EENT system. Derm: Skin is intact, Skin is pink, warm \T\ dry. Musculoskeletal: Range of motion: intact in all extremities. Injury Description: patient report a fall. Vital Signs: 12:31 BP 137 / 57; Pulse 81; Resp 18; Temp 98.0(O); Pulse Ox 99% on R/A; Weight 104.33 kg; em Height 5 ft. 3 in. (160.02 cm); Pain 8/10; 14:41 BP 141 / 58; Pulse 74; Resp 16; Pulse Ox 95% on R/A; Pain 2/10; em 15:40 BP 134 / 56; Pulse 74; Resp 18; Pulse Ox 98% on R/A; em 19:36 BP 150 / 73; Pulse 72; Resp 16; Pulse Ox 100% on R/A; Pain 0/10; ao 12:31 Body Mass Index 40.74 (104.33 kg, 160.02 cm) em ED Course: 12:25 Patient arrived in ED. em 12:27 Ulysses Rubi PA is PHCP. cp 12:27 Ulysses Nova MD is Attending Physician. cp 12:31 Arm band placed on. em 12:32 Patient has correct armband on for positive identification. Bed in low position. Call em light in reach. Side rails up X2. Adult w/ patient. 12:33 No provider procedures requiring assistance completed. em 12:39 Duy Joy LVN is Primary Nurse. em 12:53 Triage completed. iw 14:15 XRAY Pelvis In Process Unspecified. EDMS 14:15 XRAY Knee RIGHT 3 view In Process Unspecified. EDMS 14:15 XRAY Femur LEFT In Process Unspecified. EDMS 14:15 XRAY Tib Fib LEFT In Process Unspecified. EDMS 16:32 CT Pelvis wo Cont In Process Unspecified. EDMS 16:37 Low Extremity Wo Cont In Process Unspecified. EDMS 16:38 CT completed. Patient tolerated procedure well. Patient moved back from CT. jg1 19:13 Trell Gaming MD is Hospitalizing Provider. cp 20:11 Patient admitted, IV remains in place. ao Administered Medications: 13:06 Drug: Hydrocodone-Acetaminophen (7.5 mg-325 mg) 1 tabs Route: PO; em 16:12 Follow up: Response: No adverse reaction; Pain is decreased em 17:08 Drug: fentaNYL (PF) 25 mcg Route: IVP; Site: right antecubital; hj 17:38 Follow up: Response: No adverse reaction em 18:37 Drug: NS 0.9% 1000 ml Route: IV; Rate: 100 ml/hr; Site: right antecubital; em 20:09 Follow up: IV Status: Infusion continued upon admission ao 19:38 Drug: Rocephin - (cefTRIAXone) 1 grams Route: IVPB; Infused Over: 30 mins; Site: right ao antecubital; 20:09 Follow up: IV Status: Completed infusion ao Outcome: 19:14 Decision to Hospitalize by Provider. cp 20:10 Admitted to Med/surg accompanied by tech, room 205, with chart, Report called to emigdio Rockwell RN 20:10 Condition: stable 20:10 Instructed on the need for admit. 20:47 Patient left the ED. ao Signatures: Dispatcher [employer] Sofiya Stockton [email or web address] Duy Joy, ASPNET DEVELOPER ASPNET DEVELOPER em Domitila Sierra, RN RN Rylan Kyle RN Ulysses Negrete PA PA cp Ortiz, Alex RN RN emigdio
[2018-03-09] MEDS ORDERED: HYDROCODONE/APAP 5/325 MG TAB PO PRN (19:21)
[2018-03-09] MEDS ORDERED: ONDANSETRON 4 MG/2 ML VIAL IV PRN (19:21)
[2018-03-09] MEDS ORDERED: CEFTRIAXONE/SWI 1gm 1 GM/10 ML SYR ONE (19:26)
[2018-03-09 19:53] LABS: Urine Blood NEGATIVE (NEG); Urine Glucose NEGATIVE (NEG); Urine Protein TRACE (NEG); Urine Specific Gravity 1.015 (1.005-1.030)
[2018-03-09 20:27] LABS: Urine Bacteria 20-50 /HPF (<20); Urine Culture Reflex Order REFLEXED; Urine RBC <5 /HPF (NONE SEEN)
[2018-03-09] MEDS: CIPROFLOXACIN 400mg IV 400 MG/200 ML BAG IV SCH (21:47)
[2018-03-10] MEDS: METRONIDAZOLE 500mg IVPB 500 MG/100 ML BAG IV SCH ×2 (00:26→05:36)
[2018-03-10 05:08] LABS: Hematocrit 37.9 % (36.0-45.0); RBC Red Blood Cell Count 4.55 M/uL (3.86-4.86)
[2018-03-10 05:09] LABS: Absolute Lymphocytes (CBC) 0.7 K/uL (0.7-4.9); Absolute Monocytes 1.8 K/uL (0.1-1.3); Absolute Neutrophil 10.9 K/uL (1.8-8.0); Basophils % 0.3 % (0-1.3); Eosinophils % 0.1 % (0-4.4); Lymphocytes % 5.2 % (15.3-44.8); MCH 28.7 pg (27.0-35.0); MCV 83.3 fL (80-100); MPV 8.2 fL (7.6-11.3); Monocytes % 13.2 % (3.3-12.3)
[2018-03-10 05:22] LABS: Potassium 3.6 mEq/L (3.6-5.0)
[2018-03-10] MEDS: CIPROFLOXACIN 400mg IV 400 MG/200 ML BAG IV SCH ×2 (08:18→20:36)
[2018-03-10] MEDS ORDERED: TRAMADOL HCL 50 MG TAB PO PRN (11:29)
--- NOTE | 2018-03-10 11:41 | P.HP ---
Certification for Inpatient Patient admitted to: Observation With expected LOS: <2 Midnights Patient will require the following post-hospital care: Home Health Services ( home PT) Practitioner: I am a practitioner with admitting privileges, knowledge of patient current condition, hospital course, and medical plan of care. Services: Services provided to patient in accordance with Admission requirements found in Title 42 Section 412.3 of the Code of Federal Regulations Patient History Date of Service: 03/10/18 Primary Care Provider: Sarai Ortiz Reason for admission: UTI History of Present Illness: Patient of Chip Ortiz. She had a increased pain in her left foot on Sunday. [place] it was gout. She hell due to this pain. Was able to walk around quite well. However her pain was worse on Sunday. She stated she could not stand and came to the ER. She has been having some stomach pain for which she was being treated on cipro and flagyl. The patient was also found to have a UTI in the ER. Allergies Penicillins Allergy (Verified 03/09/18 21:26) Rash Sulfa (Sulfonamide Antibiotics) Allergy (Verified 03/09/18 21:26) Rash Home Medications: Alendronate Sodium 35 mg PO EVERY 7TH DAY 03/09/18 Aspirin [Josie Chewable] 81 mg PO M,W,F 03/09/18 Atorvastatin Calcium [Lipitor] 10 mg PO DAILY 03/09/18 Ca Carb/D3/Mag Ox/Dyeing Machine Tender/Arnulfo/Zn [Caltrate+D3 Plus Mineral Minis] 2 tab PO DAILY Ciprofloxacin HCl [Cipro 500 MG Tablet] 1 tab PO Q12H 03/09/18 Glucosam/MSM/Vit C/Arnulfo/Hrb#21 [Glucosamine-MSM Complex Tab] 1 tab PO DAILY 10/15 Levothyroxine [Synthroid] 25 mcg PO [id number] 03/09/18 Metronidazole [Flagyl] 500 mg PO Q6H 03/09/18 Multivitamin/Iron/Folic Acid [Centrum Adults Tablet] 1 each PO DAILY 03/09/18 Nadolol [Corgard*] 40 mg PO DAILY 03/09/18 [place]-3/Dha/Epa/Fish Oil [Fish Oil 1,000 mg Softgel] 1 tab PO DAILY 03/09/18 Ondansetron [Ondansetron Odt] 4 mg PO Q12H PRN 03/09/18 Spironolactone 50 mg PO BID 03/09/18 Vit C/E/Zn/Coppr/Lutein/Zeaxan [Preservision Areds 2 Softgel] 2 tab PO DAILY 10/15 traMADol HCL [Ultram*] 1 tab PO Q8HP PRN 03/09/18 - Past Medical/Surgical History Has patient received pneumonia vaccine in the past: Yes Diabetic: No -: Diverticulitis -: Gout -: High Cholesterol -: Hypertension -: Hypothyroidism - Social History Smoking Status: Never smoker Alcohol use: No CD- Drugs: No Caffeine use: No Place of Residence: Home Review of Systems 10-point ROS is otherwise unremarkable Gastrointestinal: Abdominal Pain Musculoskeletal: Leg Pain (left knee pain) Physical Examination - Vital Signs Temperature: 98.1 F Blood Pressure: 133/63 Pulse: 82 Respirations: 20 Pulse Ox (%): 98 - Physical Exam General: Alert, In no apparent distress HEENT: Atraumatic, PERRLA, Mucous membr. moist/pink, EOMI, Sclerae nonicteric Neck: Supple, 2+ carotid pulse no bruit, No LAD, Without JVD or thyroid abnormality Respiratory: Clear to auscultation bilaterally, Normal air movement Cardiovascular: Regular rate/rhythm, Normal S1 S2 Gastrointestinal: Normal bowel sounds, No tenderness Musculoskeletal: No tenderness, Swelling (left knee), Tenderness (left knee) Integumentary: No rashes Neurological: Normal gait, Normal speech, Normal strength at 5/5 x4 extr, Normal tone, Normal affect Lymphatics: No axilla or inguinal lymphadenopathy - Studies Laboratory Data (last 24 hrs) 03/09/18 17:50: Troponin I < 0.03 03/09/18 17:50: Magnesium 1.6 L 03/09/18 17:50: PT 16.1 H, INR 1.36, APTT 28.3 03/09/18 17:50: Sodium 134 L, Potassium 4.3, BUN 16, Creatinine 1.07 H, Glucose 155 H 03/09/18 17:50: WBC 17.4 H D, Hgb 14.0, Hct 42.3, Plt Count 292 Assessment and Plan - Problems (Diagnosis) (1) UTI (urinary tract infection) Current Visit: Yes Status: Acute Plan: Patient has a UTI with very elevated wbc. Will switch her to IV medications Qualifiers: Urinary tract infection type: acute cystitis Hematuria presence: without hematuria Qualified Code(s): N30.00 - Acute cystitis without hematuria (2) Diverticulosis Current Visit: Yes Status: Acute Plan: diverticulosis of the sigmoid colon. Improving on flagyl and cipro Qualifiers: Diverticulosis site: diverticulosis of large intestine Diverticulosis bleeding: diverticulosis without bleeding Qualified Code(s): K57.30 - Diverticulosis of large intestine without perforation or abscess without bleeding (3) Left knee pain Current Visit: Yes Status: Acute Plan: Will start the patient on a regular dosage of acetaminophen. Will refer to PT and possible home PT or outpatient PT. Her is willing to drive her Qualifiers: Chronicity: acute Qualified Code(s): M25.562 - Pain in left knee (4) HTN (hypertension) Current Visit: Yes Status: Acute Discharge Plan: Home Plan to discharge in: 24 Hours - Advance Directives Does patient have a Living Will: Yes Does patient have a Durable POA for Healthcare: Yes - Code Status/Comfort Care Code Status Assessed: No Code Status: Full Code Physician Review: Patient Assessed, Agree with Above Assessment and Plan Critical Care: No Time Spent Managing Pts Care (In Minutes): 40
[2018-03-10] MEDS: ACETAMINOPHEN 325 MG TABLET PO SCH ×3 (12:00→23:28)
--- NOTE | 2018-03-10 15:24 | EKG ---
Test Date: 2018-03-09 Test Time: 18:38:11 Helicopter Utility Aircrewman: AUSTEN MEASUREMENT RESULTS: Intervals: Rate: 77 MD: 162 QRSD: 80 QT: 394 QTc: 445 [place]: P: 25 MD: 162 QRS: 16 T: 8 INTERPRETIVE STATEMENTS: Normal sinus rhythm Cannot rule out Anterior infarct, age undetermined Abnormal ECG No previous ECG available for comparison Electronically Signed On 03-10-18 15:23:25 CDT by Nixon Francis
[2018-03-10] MEDS: ENOXAPARIN 40 MG/0.4 ML SQ SCH (17:04)
[2018-03-10] MEDS: SPIRONOLACTONE 25 MG TABLET PO SCH (20:35)
[2018-03-10] MEDS: ATORVASTATIN 10 MG TAB PO SCH (20:35)
[2018-03-10] MEDS ORDERED: HOME MED 1 EA UNK (Spironolactone [Spironolactone] 50 MG) PO SCH (21:00)
[2018-03-11] MEDS: PANTOPRAZOLE 40MG TABLET PO SCH (05:29)
[2018-03-11] MEDS: ACETAMINOPHEN 325 MG TABLET PO SCH ×3 (05:29→16:29)
[2018-03-11] MEDS: LEVOTHYROXINE SOD 0.025 MG TAB PO SCH (05:29)
[2018-03-11 06:03] LABS: Absolute Lymphocytes (CBC) 0.8 K/uL (0.7-4.9); Absolute Monocytes 1.4 K/uL (0.1-1.3); Absolute Neutrophil 11.3 K/uL (1.8-8.0); Basophils % 0.6 % (0-1.3); Eosinophils % 0.4 % (0-4.4); Hematocrit 38.2 % (36.0-45.0); MCH 27.9 pg (27.0-35.0); MCV 84.2 fL (80-100); MPV 8.2 fL (7.6-11.3); Monocytes % 10.4 % (3.3-12.3); RBC Red Blood Cell Count 4.54 M/uL (3.86-4.86)
[2018-03-11 07:23] LABS: Thyroid Stimulating Hormone 2.95 uIU/mL (0.34-5.60)
[2018-03-11] MEDS ORDERED: MSM PO SCH (09:00)
[2018-03-11] MEDS ORDERED: GLUCOSAM PO SCH (09:00)
[2018-03-11] MEDS ORDERED: VIT C PO SCH (09:00)
[2018-03-11] MEDS ORDERED: HRB PO SCH (09:00)
[2018-03-11] MEDS ORDERED: MANG PO SCH (09:00)
[2018-03-11] MEDS: DOCOSAHEXANOIC AC/EPA 1000 MG PO SCH (09:00)
[2018-03-11] MEDS: CALCIUM CARB 500MG/VIT D 200 IU TAB PO SCH (09:16)
[2018-03-11] MEDS: NADOLOL 40 MG TAB PO SCH (09:17)
[2018-03-11] MEDS: OCUVITE (VIT A,C & E/LUTEIN/MINERAL) TABLET PO SCH (09:17)
[2018-03-11] MEDS: SPIRONOLACTONE 25 MG TABLET PO SCH ×2 (09:17→20:36)
[2018-03-11] MEDS: MULTIVIT W/ MINERAL TAB PO SCH (09:17)
[2018-03-11] MEDS: CIPROFLOXACIN 400mg IV 400 MG/200 ML BAG IV SCH ×3 (09:18→20:51)
[2018-03-11] MEDS: GLUCOSAM/CHONDROI 500mg-400mg PO SCH (09:18)
--- NOTE | 2018-03-11 09:57 | P.DS ---
Admission Date: 03/09/18 Discharge Date: 03/11/18 Primary Care Provider: Sarai Ortiz Disposition: ROUTINE DISCHARGE Discharge Condition: GOOD Reason for Admission: UTI - Problems (1) UTI (urinary tract infection) Current Visit: Yes Status: Acute Qualifiers: Urinary tract infection type: acute cystitis Hematuria presence: without hematuria Qualified Code(s): N30.00 - Acute cystitis without hematuria (2) Diverticulosis Current Visit: Yes Status: Acute Qualifiers: Diverticulosis site: diverticulosis of large intestine Diverticulosis bleeding: diverticulosis without bleeding Qualified Code(s): K57.30 - Diverticulosis of large intestine without perforation or abscess without bleeding (3) Left knee pain Current Visit: Yes Status: Acute Qualifiers: Chronicity: acute Qualified Code(s): M25.562 - Pain in left knee (4) HTN (hypertension) Current Visit: Yes Status: Acute Brief History of Present Illness: Patient of Chip Ortiz. She had a increased pain in her left foot on Sunday. [place] it was gout. She hell due to this pain. Was able to walk around quite well. However her pain was worse on Sunday. She stated she could not stand and came to the ER. She has been having some stomach pain for which she was being treated on cipro and flagyl. The patient was also found to have a UTI in the ER. Hospital Course: Patient is doing well. Discharge home on scheduled dose of acetaminophen. She has tramadol which she can use for break through pain. Have the patient go to the outpatient PT center. Next to [facility] [place] office. Vital Signs/Physical Exam: Temp Pulse Resp BP Pulse Ox 97.5 F 87 16 139/70 95 03/11/18 08:00 03/11/18 09:17 03/11/18 08:00 03/11/18 09:17 03/11/18 08:00 General: Alert, In no apparent distress HEENT: Atraumatic, PERRLA, EOMI Neck: Supple, JVD not distended Respiratory: Clear to auscultation bilaterally, Normal air movement Cardiovascular: Regular rate/rhythm, Normal S1 S2 Gastrointestinal: Normal bowel sounds, No tenderness Musculoskeletal: No tenderness Integumentary: No rashes Neurological: Normal speech, Normal tone, Normal affect Lymphatics: No axilla or inguinal lymphadenopathy Laboratory Data at Discharge: WBC 13.7 K/uL (4.3-10.9) H 03/11/18 05:41 Hgb 12.7 g/dL (12.0-15.0) 03/11/18 05:41 Hct 38.2 % (36.0-45.0) 03/11/18 05:41 Plt Count 240 K/uL (152-406) 03/11/18 05:41 PT 16.1 SECONDS (9.5-12.5) H 03/09/18 17:50 INR 1.36 03/09/18 17:50 APTT 28.3 SECONDS (24.3-36.9) 03/09/18 17:50 Sodium 134 mEq/L (135-145) L 03/11/18 05:41 Potassium 4.0 mEq/L (3.6-5.0) 03/11/18 05:41 BUN 13 mg/dL (6-20) 03/11/18 05:41 Creatinine 0.86 mg/dL (0.44-1.00) 03/11/18 05:41 Glucose 122 mg/dL (65-120) H 03/11/18 05:41 Uric Acid 6.0 mg/dL (2.6-8.0) 03/10/18 11:58 Magnesium 1.6 mg/dL (1.8-2.5) L 03/09/18 17:50 Troponin I < 0.03 ng/mL (<0.03) 03/09/18 17:50 Home Medications: Alendronate Sodium 35 mg PO EVERY 7TH DAY 03/09/18 Aspirin [Josie Chewable] 81 mg PO M,W,F 03/09/18 Atorvastatin Calcium [Lipitor] 10 mg PO DAILY 03/09/18 Ca Carb/D3/Mag Ox/Agriculture Teacher/Arnulfo/Zn [Caltrate+D3 Plus Mineral Minis] 2 tab PO DAILY Ciprofloxacin HCl [Cipro 500 MG Tablet] 1 tab PO Q12H 03/09/18 Glucosam/MSM/Vit C/Arnulfo/Hrb#21 [Glucosamine-MSM Complex Tab] 1 tab PO DAILY 10/15 Levothyroxine [Synthroid] 25 mcg PO [id number] 03/09/18 Metronidazole [Flagyl] 500 mg PO Q6H 03/09/18 Multivitamin/Iron/Folic Acid [Centrum Adults Tablet] 1 each PO DAILY 03/09/18 Nadolol [Corgard*] 40 mg PO DAILY 03/09/18 [place]-3/Dha/Epa/Fish Oil [Fish Oil 1,000 mg Softgel] 1 tab PO DAILY 03/09/18 Ondansetron [Ondansetron Odt] 4 mg PO Q12H PRN 03/09/18 Spironolactone 50 mg PO BID 03/09/18 Vit C/E/Zn/Coppr/Lutein/Zeaxan [Preservision Areds 2 Softgel] 2 tab PO DAILY 10/15 traMADol HCL [Ultram*] 1 tab PO Q8HP PRN 03/09/18 Diet: Regular Activity: Fall precautions Followup: Sarai Ortiz NP [ALLIED HEALTH PROFESSIONAL] - 1 Week Time spent managing pt's care (in minutes): 30
[2018-03-11] MEDS: ENOXAPARIN 40 MG/0.4 ML SQ SCH (16:28)
[2018-03-11] MEDS ORDERED: ASPIRIN 81 MG CHEWABLE TABLET PO SCH (17:00)
[2018-03-11] MEDS: ATORVASTATIN 10 MG TAB PO SCH (20:36)
[2018-03-11] MEDS: CIPROFLOXACIN HCL 500 MG TAB PO SCH (21:31)
[2018-03-12] MEDS: ACETAMINOPHEN 325 MG TABLET PO SCH ×4 (00:49→17:23)
[2018-03-12] MEDS: PANTOPRAZOLE 40MG TABLET PO SCH (05:55)
[2018-03-12] MEDS: LEVOTHYROXINE SOD 0.025 MG TAB PO SCH (05:55)
[2018-03-12] MEDS ORDERED: ALENDRONATE 70 MG TAB PO SCH (06:00)
[2018-03-12 06:06] LABS: Absolute Lymphocytes (CBC) 0.9 K/uL (0.7-4.9); Absolute Monocytes 1.1 K/uL (0.1-1.3); Absolute Neutrophil 7.8 K/uL (1.8-8.0); Basophils % 0.5 % (0-1.3); Eosinophils % 0.7 % (0-4.4); Hematocrit 34.8 % (36.0-45.0); Lymphocytes % 9.4 % (15.3-44.8); MCH 28.8 pg (27.0-35.0); Monocytes % 10.9 % (3.3-12.3); RBC Red Blood Cell Count 4.15 M/uL (3.86-4.86)
[2018-03-12 06:16] LABS: Potassium 3.8 mEq/L (3.6-5.0)
--- NOTE | 2018-03-12 09:00 | P.PN ---
Subjective Date of Service: 03/12/18 Primary Care Provider: Sarai Ortiz Chief Complaint: UTI Subjective: Worsening (Pt was unable to walk with PT yesterday. So discharge held) Review of Systems 10-point ROS is otherwise unremarkable General: Weakness Musculoskeletal: Leg Pain (swelling of the knee and lower leg) Physical Examination - Vital Signs Temperature: 97.5 F Blood Pressure: 128/60 Pulse: 70 Respirations: 16 Pulse Ox (%): 98 - Physical Exam General: Alert, In no apparent distress HEENT: Atraumatic, PERRLA, EOMI Neck: Supple, JVD not distended Respiratory: Clear to auscultation bilaterally, Normal air movement Cardiovascular: Regular rate/rhythm, Normal S1 S2 Gastrointestinal: Normal bowel sounds, No tenderness Musculoskeletal: Swelling (left knee), Erythema (left knee), Tenderness (left knee) Integumentary: No rashes Neurological: Normal speech, Normal tone, Normal affect Lymphatics: No axilla or inguinal lymphadenopathy - Studies Microbiology Data (last 24 hrs): 03/09/18 19:05 Clean Catch Urine [place] Count - Final <10,000 CFU/ML. 03/09/18 19:05 Clean Catch Urine - Final Assessment & Plan - Problems (Diagnosis) (1) Left knee pain Onset Date: 03/11/18 Current Visit: Yes Status: Acute Plan: awaiting in pt rehab evaluation. PT states she was trying hard. Will consult Dr. Zarco. Check a venous duplex of the lower extremity Qualifiers: Chronicity: acute Qualified Code(s): M25.562 - Pain in left knee (2) UTI (urinary tract infection) Onset Date: 03/11/18 Current Visit: Yes Status: Acute Plan: Patient has a UTI with very elevated wbc. Will switch her to IV medications Qualifiers: Urinary tract infection type: acute cystitis Hematuria presence: without hematuria Qualified Code(s): N30.00 - Acute cystitis without hematuria (3) Diverticulosis Onset Date: 03/11/18 Current Visit: Yes Status: Acute Plan: diverticulosis of the sigmoid colon. Improving on flagyl and cipro Qualifiers: Diverticulosis site: diverticulosis of large intestine Diverticulosis bleeding: diverticulosis without bleeding Qualified Code(s): K57.30 - Diverticulosis of large intestine without perforation or abscess without bleeding (4) HTN (hypertension) Onset Date: 03/11/18 Current Visit: Yes Status: Acute Discharge Plan: Home Plan to discharge in: 48 Hours - Code Status/Comfort Care Code Status Assessed: No Code Status: Full Code Physician Review: Patient Assessed, Agree with Above Assessment and Plan Critical Care: No Time Spent Managing Pts Care (In Minutes): 25
[2018-03-12] MEDS: SPIRONOLACTONE 25 MG TABLET PO SCH ×2 (09:04→22:05)
[2018-03-12] MEDS: GLUCOSAM/CHONDROI 500mg-400mg PO SCH (09:04)
[2018-03-12] MEDS: CIPROFLOXACIN HCL 500 MG TAB PO SCH ×3 (09:04→22:06)
[2018-03-12] MEDS: OCUVITE (VIT A,C & E/LUTEIN/MINERAL) TABLET PO SCH (09:05)
[2018-03-12] MEDS: NADOLOL 40 MG TAB PO SCH (09:05)
[2018-03-12] MEDS: CALCIUM CARB 500MG/VIT D 200 IU TAB PO SCH (09:05)
[2018-03-12] MEDS: MULTIVIT W/ MINERAL TAB PO SCH (09:05)
[2018-03-12] MEDS: DOCOSAHEXANOIC AC/EPA 1000 MG PO SCH (09:05)
--- NOTE | 2018-03-12 10:40 | RAD REPORT ---
EXAM DESCRIPTION: VAS - Extremity Venous Uni Ltd - 03/12/2018 10:19 am CLINICAL HISTORY: Leg swelling and edema. COMPARISON: None. FINDINGS: Left lower extremity venous system was interrogated with Doppler technique. Normal flow, c ompressibility and augmentation was noted. There is no DVT present. IMPRESSION: No evidence of left lower extremity deep venous thrombosis.
[2018-03-12] MEDS: ENOXAPARIN 40 MG/0.4 ML SQ SCH (17:23)
[2018-03-12] MEDS: ATORVASTATIN 10 MG TAB PO SCH (22:07)
[2018-03-13] MEDS: ACETAMINOPHEN 325 MG TABLET PO SCH ×3 (04:24→11:15)
[2018-03-13] MEDS: LEVOTHYROXINE SOD 0.025 MG TAB PO SCH (05:28)
[2018-03-13] MEDS: PANTOPRAZOLE 40MG TABLET PO SCH (05:30)
[2018-03-13 06:40] LABS: Absolute Lymphocytes (CBC) 0.9 K/uL (0.7-4.9); Absolute Monocytes 0.9 K/uL (0.1-1.3); Absolute Neutrophil 7.9 K/uL (1.8-8.0); Basophils % 0.2 % (0-1.3); Eosinophils % 0.6 % (0-4.4); Hematocrit 36.7 % (36.0-45.0); Lymphocytes % 9.5 % (15.3-44.8); MCH 27.8 pg (27.0-35.0); MCV 83.5 fL (80-100); MPV 7.9 fL (7.6-11.3); Monocytes % 8.8 % (3.3-12.3); RBC Red Blood Cell Count 4.39 M/uL (3.86-4.86)
[2018-03-13] MEDS: MULTIVIT W/ MINERAL TAB PO SCH (08:37)
[2018-03-13] MEDS: OCUVITE (VIT A,C & E/LUTEIN/MINERAL) TABLET PO SCH (08:37)
[2018-03-13] MEDS: CALCIUM CARB 500MG/VIT D 200 IU TAB PO SCH (08:37)
[2018-03-13] MEDS: SPIRONOLACTONE 25 MG TABLET PO SCH (08:37)
[2018-03-13] MEDS: NADOLOL 40 MG TAB PO SCH (08:44)
[2018-03-13] MEDS: DOCOSAHEXANOIC AC/EPA 1000 MG PO SCH (08:45)
[2018-03-13] MEDS: CIPROFLOXACIN HCL 500 MG TAB PO SCH (08:46)
--- NOTE | 2018-03-13 10:16 | P.DS ---
Admission Date: 03/09/18 Discharge Date: 03/13/18 Primary Care Provider: Sarai Ortiz Disposition: ROUTINE DISCHARGE Discharge Condition: GOOD Reason for Admission: UTI - Problems (1) Left knee pain Onset Date: 03/11/18 Current Visit: Yes Status: Acute Qualifiers: Chronicity: acute Qualified Code(s): M25.562 - Pain in left knee (2) UTI (urinary tract infection) Onset Date: 03/11/18 Current Visit: Yes Status: Acute Qualifiers: Urinary tract infection type: acute cystitis Hematuria presence: without hematuria Qualified Code(s): N30.00 - Acute cystitis without hematuria (3) Diverticulosis Onset Date: 03/11/18 Current Visit: Yes Status: Acute Qualifiers: Diverticulosis site: diverticulosis of large intestine Diverticulosis bleeding: diverticulosis without bleeding Qualified Code(s): K57.30 - Diverticulosis of large intestine without perforation or abscess without bleeding (4) HTN (hypertension) Onset Date: 03/11/18 Current Visit: Yes Status: Acute Brief History of Present Illness: Patient of Chip rOtiz. She had a increased pain in her left foot on Sunday. [place] it was gout. She hell due to this pain. Was able to walk around quite well. However her pain was worse on Sunday. She stated she could not stand and came to the ER. She has been having some stomach pain for which she was being treated on cipro and flagyl. The patient was also found to have a UTI in the ER. Hospital Course: Patient was admitted with pain s/p fall. She has had a negative workup and exam by Dr. Mohan. The patient was not able to ambulate. PT states she was trying her best to work with them. PER her PCP Chip Ortiz the patient is not prone to malingering. So despite not finding a reason I believe she is having true pain and cannot ambulate. This caused difficulty in discharge. She does not qualify for SNF. Was not accepted by Rehab. She was offered self pay in [facility] where PT will be paid for. However she will have to self pay the stay. The patient is willing to do this. Will order an MRI of the left hip. This may be an occult hip fracture. Which can be missed on CT. Vital Signs/Physical Exam: Temp Pulse Resp BP Pulse Ox 97.7 F 86 16 149/65 H 95 03/13/18 08:00 03/13/18 08:44 03/13/18 08:00 03/13/18 08:44 03/13/18 08:00 Laboratory Data at Discharge: WBC 9.8 K/uL (4.3-10.9) 03/13/18 05:46 Hgb 12.2 g/dL (12.0-15.0) 03/13/18 05:46 Hct 36.7 % (36.0-45.0) 03/13/18 05:46 Plt Count 323 K/uL (152-406) D 03/13/18 05:46 PT 16.1 SECONDS (9.5-12.5) H 03/09/18 17:50 INR 1.36 03/09/18 17:50 APTT 28.3 SECONDS (24.3-36.9) 03/09/18 17:50 Sodium 136 mEq/L (135-145) 03/12/18 05:36 Potassium 3.8 mEq/L (3.6-5.0) 03/12/18 05:36 BUN 17 mg/dL (6-20) 03/12/18 05:36 Creatinine 0.88 mg/dL (0.44-1.00) 03/12/18 05:36 Glucose 114 mg/dL (65-120) 03/12/18 05:36 Uric Acid 6.0 mg/dL (2.6-8.0) 03/10/18 11:58 Magnesium 1.6 mg/dL (1.8-2.5) L 03/09/18 17:50 Troponin I < 0.03 ng/mL (<0.03) 03/09/18 17:50 Home Medications: Alendronate Sodium 35 mg PO EVERY 7TH DAY 03/09/18 Aspirin [Josie Chewable] 81 mg PO M,W,F 03/09/18 Atorvastatin Calcium [Lipitor] 10 mg PO DAILY 03/09/18 Ca Carb/D3/Mag Ox/Victim Witness Administrator/Arnulfo/Zn [Caltrate+D3 Plus Mineral Minis] 2 tab PO DAILY Ciprofloxacin HCl [Cipro 500 MG Tablet] 1 tab PO Q12H 03/09/18 Glucosam/MSM/Vit C/Arnulfo/Hrb#21 [Glucosamine-MSM Complex Tab] 1 tab PO DAILY 10/15 Levothyroxine [Synthroid] 25 mcg PO [id number] 03/09/18 Metronidazole [Flagyl] 500 mg PO Q6H 03/09/18 Multivitamin/Iron/Folic Acid [Centrum Adults Tablet] 1 each PO DAILY 03/09/18 Nadolol [Corgard*] 40 mg PO DAILY 03/09/18 [place]-3/Dha/Epa/Fish Oil [Fish Oil 1,000 mg Softgel] 1 tab PO DAILY 03/09/18 Ondansetron [Ondansetron Odt] 4 mg PO Q12H PRN 03/09/18 Spironolactone 50 mg PO BID 03/09/18 Vit C/E/Zn/Coppr/Lutein/Zeaxan [Preservision Areds 2 Softgel] 2 tab PO DAILY 10/15 traMADol HCL [Ultram*] 1 tab PO Q8HP PRN 03/09/18 Patient Discharge Instructions: please arrange Out patient MRI of the left hip. Diet: Regular Activity: Fall precautions Followup: Sarai Ortiz NP [[employer]] - 1 Week
--- NOTE | 2018-03-13 11:11 | CON ---
Date of Consultation: 03/12/2018 This is my first time seeing this patient to my knowledge. She is a 72-year-old female, who unfortun ately said that she had a bout of gout last week and that her foot was hurting her, but she was impro ving until she stepped from one room to the other and her left foot hurt. The pain was severe enough that it caused her to fall. After she fell, she said that she had some soreness, but she was able t o ambulate and able to go back and forth to the bathroom and around her home without much difficulty until Sunday per her report. On Sunday, she really could get up and go to the bathroom, and therefor e went to the emergency department. In the emergency department, she was evaluated and she had x-ray s of her femur, x-rays of her knee, and x-rays of her pelvis as well as x-rays of her tib-fib and a p elvic CT. She also had a lower extremity CT, which was done on 03/09. Today is Sunday, so that wou ld place that study on Sunday, although she said that she was taken to the emergency room on Sunday . Apparently since that time, she has been trying to participate in physical therapy, but says she w as unable to ambulate because of pain, primarily in her left knee. On physical examination, she has a small ecchymosis on the right knee. She has a more significant ec chymosis on the medial aspect of her left knee and proximal tibia. Otherwise, range of motion of her hip is absolutely nonpainful with log roll. Also palpation in the region of the hip does not cause any pain. On examination of her left knee, she is able to maintain a straight leg raise. She appear s stable to varus and valgus stress at 0 and 30 degrees. There may be an effusion, effusion is diffi cult to quantify because of the patient's habitus. She does complain of pain with palpation and angel pulation of the left knee. Review of her studies reveal no fracture or dislocation in the pelvis on CT or x-ray. No fracture or dislocation in the left femur on x-ray and CT, and no fracture of the left knee on x-ray and CT. Angelita nails currently does not complain of much pain related to her foot and definitely does not refer to her f oot as being the most painful problem. She does have some degenerative changes of both knees; scott r, I would say it was more significant on the right. Assessment: At this time, she absolutely denies hip pain. If she did have hip pain, we may move for soler with MRI to assess for any fracture of the hip, which would be occult this. I have seen happen after a fall and lead to inability to bear weight; however, we would think that 2 days of walking wou ld probably lead this more closely to this and a CT scan would be helpful, although not conclusive. More conclusive would be absolutely no pain with movement or manipulation of her hip at this time. W ith regard to her knee, I do not see any orthopedic surgical emergency. There is no sign of infectio n. No evidence of posterior lateral corner tear. There is no fracture on x-ray or CT. The patellar tendon and quadriceps tendon appear intact. Assessment is a relatively deconditioned patient now wi th complaints of pain in both of her knees, left being much more severe. She currently says that she cannot bear weight and has significant pain related to her knee. As this is from an injury, I belie ve that a corticosteroid injection would be ill-advised; however, I believe that she should be able t o be weightbearing as tolerated. If she begins to complain of pain in her hip, an MRI would be recom mended; however, she at this time has no pain related to her hip. Otherwise, I believe that she can mobilize as tolerated and she is at least be taught transfers. I hope that she simply has contusion to her knee; however, ACL tear or meniscal pathology is not completely eliminated and these would not be considered emergent and we would assess for improvement. If she felt to improve, an MRI may be h elpful; however, neither an ACL tear nor a meniscal tear would be a surgical emergency and neither on e would cause her to be bed-bound and she could be weightbearing as tolerated. If that were indeed h er problem and would not really change her current management. I will speak with Dr. Gaming and also speak with the patient again as well. /JENNIFER Voice ID: [id number] Report ID: [id number]
[2018-03-13] MEDS: GLUCOSAM/CHONDROI 500mg-400mg PO SCH (11:12)
== END 2018-03-13 13:57 ==
LOC: ER 12:17 → INTOOBSV 19:34 → OBSVTOIN 19:34 → ERHOLD 19:34 → 2ND 19:57 → INTOOBSV 03-12 09:03 → OBSVTOIN 03-12 09:03
PROVIDERS: ADMIT Internal Medicine; ATTEND Internal Medicine
DX: N30.00 Acute cystitis without hematuria (principal); K57.90 Diverticulosis of intestine, part unspecified, without perforation or abscess without bleeding; M25.562 Pain in left knee; I10 Essential (primary) hypertension; E03.9 Hypothyroidism, unspecified; M1A.9XX0 Chronic gout, unspecified, without tophus (tophi); Z88.0 Allergy status to penicillin; Z88.2 Allergy status to sulfonamides; Z79.82 Long term (current) use of aspirin
CPT/HCPCS: 36415 ×4; 72170; 72192; 73552; 73562; 73590; 73700; 80048 ×4; 82550; 82553; 83735; 84443; 84484; 84550; 85025 ×5; 85610; 85730; 87086; 87088; 87493; 93005; 93971; 96361; 96365; 96375; 97110; 97112; 97163; 97530 ×5; 99285; G0378 ×2; J0696; J0744 ×4; J1650 ×3; J3010; J7030; 81003; 81015